=== PATIENT | male | born 1965 | race Two or more races ===

== ENCOUNTER 2025-06-01 14:27 | Emergency (ER) | payer OTHER ==
[~2025-06-01] VITALS: Ht 172.7 cm; Wt 97.1 kg
[2025-06-01] MEDS ORDERED: KETOROLAC TROMETHAMINE 60 MG VIAL IM ONE (15:45)
[2025-06-01] MEDS ORDERED: ORPHENADRINE CITRATE 30 MG/ML AMPUL IM ONE (15:45)
[2025-06-01] MEDS ORDERED: DEXAMETHASONE SODIUM PHOSPHATE 4 MG/ML VIAL IM ONE (15:45)
[2025-06-01] MEDS ORDERED: IBUPROFEN600 MG PO (18:53)
[2025-06-01] MEDS ORDERED: NORFLEX100MG PO (18:53)
[2025-06-01] MEDS ORDERED: PEPCID AC20 MG PO (18:53)
== END 2025-06-01 19:18 | disposition home or self-care (01) ==
LOC: ER 14:27
DX: M79.642 Pain in left hand (principal); M25.561 Pain in right knee; W18.39XA Other fall on same level, initial encounter; Y93.89 Activity, other specified; Y92.89 Other specified places as the place of occurrence of the external cause; M54.50 Low back pain, unspecified